=== PATIENT | female | born 1995 | race Asian ===

== ENCOUNTER 2019-10-12 09:12 | Emergency (ER) | payer SELFPAY ==
[2019-10-12 09:29] LABS: ABS Eosinophils 0.1 10^3/ul (0-0.6); ABS Lymphocytes 0.9 10^3/ul (1.0-4.8); ABS Monocytes 0.3 10^3/ul (0-0.8); ABS Neutrophils 3.5 10^3/ul (1.5-7.7); Eosinophil % 1.5 %; Hematocrit 43 % (35-47); Hemoglobin 13.9 g/dL (12.0-16.0); Mean Corpuscular HGB Conc 32 g/dL (31-36); Mean Corpuscular Hemoglobin 27 pg (27-31); Mean Corpuscular Volume 82 fL (80-97); Mean Platelet Volume 8.6 fL (7.4-10.4); Platelet Count 208 10^3/uL (150-450); Red Blood Count 5.23 10^6 /uL (3.70-4.87); Red Cell Distribution Width 13 % (10-15); White Blood Count 4.8 10^3/uL (3.5-10.8)
--- NOTE | 2019-10-12 09:29 | ED ---
HPI Chest Pain - HPI Summary HPI Summary: 24-year-old female with no significant past medical history presents to the emergency department with a chief complaint chest pain which began at 1800 yesterday evening. She states it's a 2 out of 10 epigastric pressure. She denies associated symptoms such as abdominal pain, pain radiating down her left arm, jaw pain, diaphoresis, worse with exertion. She endorses mild shortness of breath she states is "hard to catch her breath." She states she took a bus to [facility] and back for a total of 9 hours spent on the bus yesterday. She denies use of oral contraceptive pills. She denies recent surgery or immobilization. She denies past medical history of blood clots or blood clotting disorder. Family history is noncontributory with no history of MIs or diabetes She denies fever, abdominal pain, pains urination, rash, cough. She denies tobacco use, alcohol use, recreational drug use. - History of Current Complaint Time Seen by Provider: 10/12/19 09:15 Hx Obtained From: Patient Timing: Constant Initial Severity: Mild Current Severity: Mild Pain Intensity: 3 Pain Scale Used: 0-10 Numeric Chest Pain Location: Mid Sternal Chest Pain Radiates: No Character: Pressure/Squeezing Aggravating Factor(s): Position Alleviating Factor(s): Rest, Position, Other: - Drinking hot water Associated Signs and Symptoms: Positive: Chest Pain, Shortness of Breath. Negative: Fever, Diaphoresis, Nausea, Cough, Productive Cough, Nonproductive Cough, Hemoptysis - Risk Factors Pulmonary Embolism Risk Factors: Recent Travel - Allergy/Home Medications Allergies/Adverse Reactions: Allergies Allergy/AdvReac Type Severity Reaction Status Date / Time No Known Allergies Allergy Verified 10/12/19 09:22 Home Medications: Home Medications NK [No Home Medications Reported] 10/12/19 [History Confirmed 10/12/19] PMH/Surg Hx/FS Hx/Imm Hx Infectious Disease History: No Infectious Disease History: Denies: Traveled Outside the [place] in Last 30 Days - Social History Alcohol Use: None Substance Use Type: Reports: None Smoking Status (MU): Never Smoked Tobacco Review of Systems Constitutional: Negative Eyes: Negative ENT: Negative Positive: Chest Pain Positive: Shortness Of Breath. Negative: Cough Gastrointestinal: Negative Genitourinary: Negative Musculoskeletal: Negative Skin: Negative Neurological: Negative Psychological: Normal All Other Systems Reviewed And Are Negative: Yes Physical Exam Triage Information Reviewed: Yes Vital Signs On Initial Exam: Initial Vitals Temp Pulse Resp BP Pulse Ox 96.7 F 77 14 122/80 100 10/12/19 09:12 10/12/19 09:12 10/12/19 09:12 10/12/19 09:12 10/12/19 09:12 Vital Signs Reviewed: Yes Appearance: Positive: Well-Appearing, No Pain Distress, Well-Nourished Skin: Positive: Warm, Skin Color Reflects Adequate Perfusion Eyes: Positive: EOMI, ESTRELLITA ENT: Positive: Hearing grossly normal Respiratory/Lung Sounds: Positive: Clear to Auscultation, Breath Sounds Present Cardiovascular: Positive: RRR, S1, S2 Abdomen Description: Positive: Nontender, Soft. Negative: Distended, Guarding Bowel Sounds: Positive: Present Musculoskeletal: Positive: Strength/ROM Intact Neurological: Positive: Sensory/Motor Intact, Alert, Oriented to Person Place, Time, Speech Normal Psychiatric: Positive: Normal AVPU Assessment: Alert Procedures - Sedation Patient Received Moderate/Deep Sedation with Procedure: No Diagnostics - Vital Signs Vital Signs Temp Pulse Resp BP Pulse Ox 10/12/19 09:12 96.7 F 77 14 122/80 100 - Laboratory Result Diagrams: 10/12/19 09:20 10/12/19 09:20 Lab Statement: Any lab studies that have been ordered have been reviewed, and results considered in the medical decision making process. Chest Pain Course/Dx - Course Course Of Treatment: Patient was evaluated in the emergency department today for chest pain. Patient seen and examined her vitals were stable and she is afebrile. An EKG was probably done which showed normal sinus rhythm at a rate of 67 bpm. There is no ST elevation or signs of ischemia. There is no evidence of right heart strain. Normal axis. Normal DE and QT interval. No evidence of Brugada or WPW. Laboratory studies show no leukocytosis or sign of anemia. There are no electrolyte abnormalities or decrease in renal or hepatic function. D-dimer is negative at less than 200. Initial troponin is 0.0. HEART score: 0. Due to her heart score and low risk for myocardial infarction serial troponins were deemed unnecessary. There is no evidence of pulmonary embolism or myocardial infarction requiring immediate intervention at this time. She was told to follow-up with her primary care provider for further evaluation and management of her symptoms. She is told to return to emergency department immediately if she developed any new or worsening symptoms. - Chest Pain Differential Diagnosis/HQI/PQRI: Acute NM, ACS, Angina, Pulmonary Embolism - Diagnoses Provider Diagnoses: Chest pain Discharge ED - Sign-Out/Discharge Documenting (check all that apply): Patient Departure - Discharge Plan Condition: Stable Disposition: HOME Patient Education Materials: Angina (ED) Referrals: [facility] - Matthias ROJAS [Primary Care Provider] - 2 Days Additional Instructions: You were seen in the emergency department today for chest pain. An EKG and laboratory studies were done which showed no evidence of an acute medical problem requiring intervention at this time. I'm unsure what is causing your symptoms however it is still possible that they are cardiac in origin. [facility] and management of your symptoms. Please return to emergency department immediately if you develop any new or worsening symptoms. - Billing Disposition and Condition Condition: STABLE Disposition: Home
[2019-10-12 09:35] LABS: INR 1.08 (0.82-1.09)
[2019-10-12 09:49] LABS: Albumin 4.9 g/dL (3.2-5.2); BUN/Creatinine Ratio 19.4 (8-20); Calcium 9.6 mg/dL (8.6-10.3); EGFR African American 122.6 (>60); EGFR Non-African American 101.3 (>60); Globulin 2.5 g/dL (2-4); Potassium 3.7 mmol/L (3.5-5.0); Total Bilirubin 0.8 mg/dL (0.2-1.0); Total Protein 7.4 g/dL (6.4-8.9)
[2019-10-12 10:53] VITALS: BP 138/88
== END 2019-10-12 11:00 | disposition home or self-care (01) ==
LOC: ED 09:12
DX: R07.9 Chest pain, unspecified (principal)
CPT/HCPCS: 36415; 80053; 84484; 85025; 85379; 85610; 93005; 99282